=== PATIENT | male | born 1960 | race Caucasian/White ===

== ENCOUNTER 2017-02-15 18:18 | Emergency (ER) | payer OTHER | END 2017-02-15 18:38 | disposition home or self-care (01) | LOC: ER 18:18 | DX: S61.512A Laceration without foreign body of left wrist, initial encounter (principal); K21.9 Gastro-esophageal reflux disease without esophagitis; Z90.89 Acquired absence of other organs; Z79.899 Other long term (current) drug therapy; W45.8XXA Other foreign body or object entering through skin, initial encounter ==